=== PATIENT | male | born 1985 | race African-American/Black ===

== ENCOUNTER 2017-08-24 10:10 | Emergency (ER) | payer MEDICAID ==
[~2017-08-24] VITALS: Ht 185.4 cm; Wt 95.0 kg
[2017-08-24] MEDS ORDERED: ONDANSETRON HCL 4MG/2ML VIAL IV STA (11:13)
[2017-08-24] MEDS ORDERED: SODIUM CHLORIDE 0.9% 1,000 ML IV ONE (11:13)
[2017-08-24] MEDS ORDERED: MORPHINE SULFATE 4 MG/ML CPJ (NOT FOR IM USE) IV STA (11:13)
[2017-08-24] MEDS ORDERED: FAMOTIDINE 20MG/2ML VIAL IV ONE (11:30)
[2017-08-24 11:33] LABS: BASOPHILS % 0.1 % (0.0-2.0); EOSINOPHILS % 0.1 % (0.0-5.0); HEMATOCRIT. 44.3 % (42.0-52.0); HEMOGLOBIN. 14.9 g/dL (14.0-18.0); LYMPHOCYTES % 7.3 % (20.0-50.0); MEAN CORPUSCULAR HEMOGLOBIN 27.6 pg (28.0-32.0); MEAN PLATELET VOLUME 7.3 fl (7.4-10.4); MONOCYTES % 4.9 % (2.0-8.0); NEUTROPHILS % 87.6 % (40.0-76.0); PLATELET 252 x1000/uL (130-400); RED CELL DISTRIBUTION WIDTH 13.1 % (11.6-14.6)
[2017-08-24] MEDS ORDERED: MORPHINE SULFATE 10 MG/ML CPJ IV STA (11:33)
[2017-08-24 11:48] LABS: CARBON DIOXIDE 30 mEq/L (21-32); CHLORIDE 102 mEq/L (98-107); ETHANOL BLOOD < 10 mg/dL
[2017-08-24 13:49] VITALS: BP 116/72
[2017-08-24 14:25] LABS: CLARITY URINE CLEAR (CLEAR); COLOR URINE YELLOW (YELLOW); GLUCOSE URINE NEGATIVE (NEGATIVE); KETONES URINE NEGATIVE (NEGATIVE); LEUKOCYTE ESTERASE URINE TRACE (NEGATIVE); NITRITE URINE NEGATIVE (NEGATIVE); OCCULT BLOOD URINE NEGATIVE (NEGATIVE); PH URINE >=9.0 (4.5-8.0); PROTEIN URINE TRACE (NEGATIVE); SPECIFIC GRAVITY URINE 1.029 (1.005-1.030); UROBILINOGEN URINE 0.2 E.U./dL (0.2-1.0)
[2017-08-24 14:34] LABS: *AMPHETAMINES SCREEN URINE NEGATIVE (NEGATIVE); *BARBITURATES SCREEN URINE NEGATIVE (NEGATIVE); *BENZODIAZEPINES SCREEN URINE NEGATIVE (NEGATIVE); *COCAINE SCREEN URINE NEGATIVE (NEGATIVE); CANNABINOID URINE SCREEN PRESUMTIVE POSITIVE (NEGATIVE); METHADONE URINE SCREEN NEGATIVE (NEGATIVE); OPIATES URINE SCREEN PRESUMTIVE POSITIVE (NEGATIVE); PHENCYCLIDINE URINE SCREEN NEGATIVE (NEGATIVE)
== END 2017-08-24 14:11 | disposition home or self-care (01) ==
LOC: ER 10:27
DX: R16.0 Hepatomegaly, not elsewhere classified (principal); R11.2 Nausea with vomiting, unspecified
CPT/HCPCS: 36415; 76705; 80053; 80305; 81001; 83690; 85025; 96361; 96374; 96375; 99285; G0482; J2270; J2405; J3490; J7030

== ENCOUNTER 2017-12-07 11:11 | Emergency (ER) | payer MEDICAID ==
[~2017-12-07] VITALS: Ht 185.4 cm; Wt 99.0 kg
[2017-12-07 11:28] VITALS: BP 137/86
[2017-12-07] MEDS ORDERED: LIDOCAINE HCL 1% 20ML VIAL (Pyxis) INJ INFIL ONE (12:15)
[2017-12-07] MEDS ORDERED: BACITRACIN ZINC OINT UDPKT TOP ONE (12:30)
== END 2017-12-07 12:37 | disposition home or self-care (01) ==
LOC: ER 11:38
DX: L03.011 Cellulitis of right finger (principal); F12.10 Cannabis abuse, uncomplicated
CPT/HCPCS: 10060; 99283; J3490; Z7610

== ENCOUNTER 2019-01-05 08:51 | Emergency (ER) | payer MEDICAID ==
[~2019-01-05] VITALS: Ht 177.8 cm; Wt 82.0 kg
[2019-01-05] MEDS ORDERED: KETOROLAC 30MG/ML VIAL IV STA (09:37)
[2019-01-05] MEDS ORDERED: ONDANSETRON HCL 4MG/2ML INJ IV STA (09:37)
[2019-01-05] MEDS ORDERED: SODIUM CHLORIDE 0.9% 1,000 ML IV ONE (09:37)
[2019-01-05] MEDS ORDERED: FAMOTIDINE 20MG/2ML VIAL IV STA (09:37)
[2019-01-05 10:04] LABS: BASOPHILS % 0.5 % (0.0-2.0); EOSINOPHILS % 0.1 % (0.0-5.0); HEMATOCRIT. 43.6 % (42.0-52.0); HEMOGLOBIN. 14.5 g/dL (14.0-18.0); LYMPHOCYTES % 11.5 % (20.0-50.0); MEAN CORPUSCULAR HEMOGLOBIN 27.7 pg (28.0-32.0); MEAN CORPUSCULAR VOLUME 83.4 fL (80.0-94.0); MEAN PLATELET VOLUME 7.6 fl (7.4-10.4); MONOCYTES % 3.7 % (2.0-8.0); NEUTROPHILS % 84.2 % (40.0-76.0); PLATELET 221 x1000/uL (130-400); RED BLOOD CELL COUNT 5.23 mill/uL (4.7-6.1)
[2019-01-05 10:11] LABS: CHLORIDE 106 mEq/L (98-107); INR 1.1; PROTHROMBIN TIME 10.8 sec (9.6-11.0)
[2019-01-05 11:21] LABS: CLARITY URINE CLEAR (CLEAR); COLOR URINE YELLOW (YELLOW); KETONES URINE NEGATIVE (NEGATIVE); LEUKOCYTE ESTERASE URINE NEGATIVE (NEGATIVE); NITRITE URINE NEGATIVE (NEGATIVE); OCCULT BLOOD URINE NEGATIVE (NEGATIVE); PH URINE 8.5 (4.5-8.0); PROTEIN URINE NEGATIVE (NEGATIVE); SPECIFIC GRAVITY URINE 1.025 (1.005-1.030); UROBILINOGEN URINE 0.2 E.U./dL (0.2-1.0)
[2019-01-05] MEDS ORDERED: MORPHINE SULFATE 4 MG/ML CPJ (NOT FOR IM USE) IV ONE (11:30)
[2019-01-05] MEDS ORDERED: ONDANSETRON HCL 4MG/2ML INJ IV ONE (11:30)
[2019-01-05 13:48] VITALS: BP 132/79
== END 2019-01-05 13:52 | disposition home or self-care (01) ==
LOC: ER 08:51
DX: R10.13 Epigastric pain (principal); R11.2 Nausea with vomiting, unspecified
CPT/HCPCS: 36415; 80053; 81003; 83690; 85025; 85610; 96361; 96374; 96375; 96376; 99283; J1885; J2270; J2405; J3490; J7030; Z7610

== ENCOUNTER 2021-03-28 11:56 | Emergency (ER) | payer MEDICAID ==
[~2021-03-28] VITALS: Ht 180.3 cm; Wt 100.0 kg
[2021-03-28] MEDS ORDERED: KETOROLAC 30MG/ML VIAL IM ONE (13:15)
[2021-03-28 14:24] VITALS: BP 130/95
[2021-03-28] MEDS ORDERED: NAP5EC MT (14:58)
[2021-03-28] MEDS ORDERED: ACET-2708 MT (14:58)
== END 2021-03-28 15:10 | disposition home or self-care (01) ==
LOC: ER 12:08
DX: S50.812A Abrasion of left forearm, initial encounter (principal); S80.01XA Contusion of right knee, initial encounter; T14.8XXA Other injury of unspecified body region, initial encounter; M54.5 Low back pain; F12.10 Cannabis abuse, uncomplicated; V43.52XA Car driver injured in collision with other type car in traffic accident, initial encounter; Y93.89 Activity, other specified; Y92.488 Other paved roadways as the place of occurrence of the external cause
CPT/HCPCS: 72100; 73562; 96372; 99284; J1885